=== PATIENT | female | born 1955 | race Caucasian/White ===

== ENCOUNTER 2016-09-03 12:52 | Inpatient (IN) | payer OTHER ==
[~2016-09-03 12:52] MED LIST: AMBIEN10 M1 PO; ASPIRIN EC81 MG PO; ATIVAN0.5 M1 PO; BENADRYL25 M3 PO; CALCIUM CARBON600 M2 PO; FISH OIL OMEGA1 EAC2 PO; GLUCOPHAGE500 M3 PO; GLUCOSAMINE &1 EAC1 PO; HYDROCHLOROTHIA25 M1 PO; LISINOPRIL40 M1 PO; MELOXICAM15 M1 PO; METRONIDAZOLE45 G1 TOP; MUCINEX600 M1 PO; NABUMETONE500 M1 PO; PROZAC40 M1 PO; TRAMADOL HCL50 M2 PO; TRAZODONE HCL50 M1 PO; TYLENOL EXTRA500 M1 PO; VITAMIN D32000 UNI3 PO; ZOCOR20 M1 PO
[2016-09-04 06:38] LABS: BASO % 0.2 % (0-2); EOS % 1.1 % (0-7); EOSINOPHIL ABSOLUTE COUNT 0.1 tho/cmm (0.0-0.7); HCT-HEMATOCRIT 28.9 % (34.0-49.0); HGB-HEMOGLOBIN 9.7 gm/dl (12.0-15.5); IMMATURE GRANULOCYTES ABSOLUTE 0.02 tho/cmm (0-0.03); IMMATURE GRANULOCYTES PERCENT 0.2 % (0-0.3); LYMPH % 22.8 % (20-45); LYMPH ABSOLUTE COUNT 2.2 tho/cmm (0.8-4.5); MCH (MEAN CORPUSCULAR HGB) 30.2 pg (28.0-32.0); MCHC MEAN CORPUSCULAR HGB CONC 33.6 % (32.0-36.0); MEAN PLATELET VOLUME 10.2 cmc (9.4-12.4); MONO % 6.3 % (0-12); MONOCYTE ABSOLUTE COUNT 0.6 tho/cmm (0.0-1.2); NEUTROPHIL ABSOLUTE COUNT 6.6 tho/cmm (1.6-8.0); NEUTROPHIL-AUTOMATED 6.6 tho/cmm (1.6-8.0); NEUTROPHILS % 69.4 % (40-80); PLATELET COUNT 185 tho/cmm (150-450); RED BLOOD COUNT 3.21 mil/cmm (4.00-5.20); RED CELL DISTRIBUTION WIDTH 12.9 % (12.4-16.4); WHITE BLOOD COUNT 9.5 tho/cmm (4.0-10.0)
[2016-09-05] MEDS ORDERED: ASPIRIN325 M3 PO (13:43)
[2016-09-05] MEDS ORDERED: ROXICODONE5 M2 PO (13:44)
== END 2016-09-05 16:10 | DRG 470 ==
LOC: SHSB 12:52 → ORE 16:15 → PACU 19:07 → 5EA 20:15
PROVIDERS: Physician Assistant; ADMIT Orthopaedic Surgery
PROC: 0SRD0J9 Replacement of Left Knee Joint with Synthetic Substitute, Cemented, Open Approach (ICD-10-PCS; principal; 2016-09-03)
DX: M17.12 Unilateral primary osteoarthritis, left knee (principal); I10 Essential (primary) hypertension; M21.162 Varus deformity, not elsewhere classified, left knee; E78.5 Hyperlipidemia, unspecified; F41.9 Anxiety disorder, unspecified; F32.9 Major depressive disorder, single episode, unspecified; E11.9 Type 2 diabetes mellitus without complications; G47.00 Insomnia, unspecified
CPT/HCPCS: C1713; J0171; J0690; J1885; J2270; J2795